=== PATIENT | male | born 1940 | race Two or more races ===

== ENCOUNTER 2017-12-25 11:01 | Inpatient (IN) | payer OTHER ==
[~2017-12-25] VITALS: Ht 167.6 cm; Wt 59.0 kg
[~2017-12-25 11:01] MED LIST: CIPRO250 MG PO; METOPROLOL SUCC25 MG; SYNTHROID50 MCG; TAMS0.4C
[2018-02-13] MEDS ORDERED: CLOPIDOGREL BIS75 MG PO (12:05)
[2018-02-13] MEDS ORDERED: INTEGRA PLUS C1 EACH PO (12:05)
[2018-02-13] MEDS ORDERED: Coreg 25MG TABLET PO (12:06)
[2018-02-13] MEDS ORDERED: LOSARTAN POTASS50 MG PO (12:06)
[2018-02-13] MEDS ORDERED: AMLODIPINE BESYL5 MG PO (12:06)
[2018-02-13] MEDS ORDERED: CEFADROXIL500 MG PO (12:08)
[2018-02-13] MEDS ORDERED: PREVACID30 MG PO (12:08)
== END 2018-02-13 18:02 | disposition other institution (70) | DRG 981 ==
LOC: ER 11:01 → ICU-2 15:42 → MEDJ 15:42 → ICU 12-30 02:23 → MEDJ 01-08 21:02 → MEDI 01-08 21:02 → MEDJ 02-11 11:46
PROVIDERS: Surgery
PROC: 4A033R1 Measurement of Arterial Saturation, Peripheral, Percutaneous Approach (ICD-10-PCS; 2017-12-25)
PROC: BW28ZZZ Computerized Tomography (CT Scan) of Head (ICD-10-PCS; 2017-12-25)
PROC: B345ZZZ Ultrasonography of Bilateral Common Carotid Arteries (ICD-10-PCS; 2017-12-25)
PROC: B348ZZZ Ultrasonography of Bilateral Internal Carotid Arteries (ICD-10-PCS; 2017-12-25)
PROC: 3E0336Z Introduction of Nutritional Substance into Peripheral Vein, Percutaneous Approach (ICD-10-PCS; 2017-12-26)
PROC: BW28ZZZ Computerized Tomography (CT Scan) of Head (ICD-10-PCS; 2017-12-27)
PROC: B246ZZZ Ultrasonography of Right and Left Heart (ICD-10-PCS; 2017-12-27)
PROC: 8E0ZXY6 Isolation (ICD-10-PCS; 2017-12-27)
PROC: 4A12X4Z Monitoring of Cardiac Electrical Activity, External Approach (ICD-10-PCS; 2018-01-08)
PROC: 3E0F7GC Introduction of Other Therapeutic Substance into Respiratory Tract, Via Natural or Artificial Opening (ICD-10-PCS; 2018-01-15)
PROC: 30233N1 Transfusion of Nonautologous Red Blood Cells into Peripheral Vein, Percutaneous Approach (ICD-10-PCS; 2018-01-19)
PROC: 0DJ08ZZ Inspection of Upper Intestinal Tract, Via Natural or Artificial Opening Endoscopic (ICD-10-PCS; 2018-02-03)
PROC: 0DH60UZ Insertion of Feeding Device into Stomach, Open Approach (ICD-10-PCS; principal; 2018-02-04 13:00)
PROC: 0DH63UZ Insertion of Feeding Device into Stomach, Percutaneous Approach (ICD-10-PCS; 2018-02-10)
DX: I63.511 Cerebral infarction due to unspecified occlusion or stenosis of right middle cerebral artery (principal); A41.9 Sepsis, unspecified organism; J69.0 Pneumonitis due to inhalation of food and vomit; I50.33 Acute on chronic diastolic (congestive) heart failure; I16.9 Hypertensive crisis, unspecified; N39.0 Urinary tract infection, site not specified; B37.0 Candidal stomatitis; K92.1 Melena; G81.94 Hemiplegia, unspecified affecting left nondominant side; J98.11 Atelectasis; D62 Acute posthemorrhagic anemia; Z74.01 Bed confinement status; R13.19 Other dysphagia; B96.1 Klebsiella pneumoniae [K. pneumoniae] as the cause of diseases classified elsewhere; Z16.12 Extended spectrum beta lactamase (ESBL) resistance; I34.0 Nonrheumatic mitral (valve) insufficiency; I11.0 Hypertensive heart disease with heart failure; B96.5 Pseudomonas (aeruginosa) (mallei) (pseudomallei) as the cause of diseases classified elsewhere; E86.0 Dehydration; Z86.73 Personal history of transient ischemic attack (TIA), and cerebral infarction without residual deficits; B95.62 Methicillin resistant Staphylococcus aureus infection as the cause of diseases classified elsewhere; Z78.1 Physical restraint status; Z66 Do not resuscitate

== ENCOUNTER 2020-04-23 12:28 | Emergency (ER) | payer OTHER ==
[~2020-04-23] VITALS: Ht 162.6 cm; Wt 81.6 kg
[~2020-04-23 12:28] MED LIST changes: +AMLODIPINE BESYL5 MG PO; +CEFADROXIL500 MG PO; +CLOPIDOGREL BIS75 MG PO; +Coreg 25MG TABLET PO; +INTEGRA PLUS C1 EACH PO; +LOSARTAN POTASS50 MG PO; +PREVACID30 MG PO
[2020-04-23] MEDS ORDERED: CARVEDILOL ER40 MG (12:57)
== END 2020-04-23 16:16 | disposition home or self-care (01) ==
LOC: ER 12:28
DX: K94.23 Gastrostomy malfunction (principal)